=== PATIENT | male | born 1960 | race Caucasian/White ===

== ENCOUNTER 2017-04-05 22:50 | Emergency (ER) | payer MEDICAID ==
[~2017-04-05] VITALS: Ht 162.6 cm; Wt 74.8 kg
--- NOTE | 2017-04-06 00:31 | NUR ---
Patient is resting comfortably in bed with eyes closed
--- NOTE | 2017-04-06 01:45 | NUR ---
Patient provided copy of [facility] and police report left by [employer].
--- NOTE | 2017-04-06 01:46 | NUR ---
Patient discharged to home in stable conditon. Written and verbal after care instructions given. Patient verbalizes understanding of instructions.
== END 2017-04-06 01:48 | disposition home or self-care (01) ==
LOC: ER 22:51
DX: S61.411A Laceration without foreign body of right hand, initial encounter (principal); S61.211A Laceration without foreign body of left index finger without damage to nail, initial encounter; S51.812A Laceration without foreign body of left forearm, initial encounter; W26.0XXA Contact with knife, initial encounter; Y93.89 Activity, other specified; Y92.9 Unspecified place or not applicable; Y99.9 Unspecified external cause status
CPT/HCPCS: 12002; 73090; 73130 ×2; 90471; 90715; 96372; 99284; A4217 ×3; A4663; J0690

== ENCOUNTER 2021-03-08 20:32 | Inpatient (IN) | payer MEDICAID ==
[~2021-03-08] VITALS: Ht 165.1 cm; Wt 56.7 kg
--- NOTE | 2021-03-08 20:50 | NUR ---
Patient bib ra 83 from [address] station for weakness. Pt. was sitting on planter unable to ambulate. BGC taken by ems was 134. Pt. emirati speaking only, but understands some gambian.
[2021-03-08] MEDS ORDERED: IV NORMAL SALINE 250 ML BAG IV ONE (21:15)
[2021-03-08 21:26] LABS: HEMATOCRIT 24.8 % (36.7-47.1); MEAN CORPUSCULAR HEMOGLOBIN 28.5 uug (23.8-33.4); MEAN CORPUSCULAR VOLUME 89.1 fL (73.0-96.2); PLATELET COUNT (AUTO) 262 K/uL (152-348)
--- NOTE | 2021-03-08 21:30 | NUR ---
Dr Lou at bedside for mse.
[2021-03-08 21:32] LABS: CREATININE 2.8 mg/dL (0.6-1.3); POTASSIUM 4.7 mmol/L (3.5-5.1)
--- NOTE | 2021-03-08 21:40 | NUR ---
Pt taken to ct
[2021-03-08 21:48] LABS: BILIRUBIN,TOTAL 21.6 mg/dL (0.2-1.0); TOTAL PROTEIN, SERUM 6.8 g/dL (6.4-8.2)
[2021-03-08 21:49] LABS: BILIRUBIN,DIRECT 17.5 mg/dL (0.0-0.2)
--- NOTE | 2021-03-08 21:52 | NUR ---
Pt returned from CT
[2021-03-08] MEDS ORDERED: PIPERACILLIN/TAZO 2.25 G in IV DEXTROSE 5% 50 ML IV STA (22:14)
[2021-03-08] MEDS ORDERED: PIPERACILLIN/TAZOBACTAM/D5W 50 ML ONE (22:29)
[2021-03-08] MEDS ORDERED: IV NORMAL SALINE 500 ML BAG IV ONE (22:30)
[2021-03-08] MEDS ORDERED: LACTULOSE 20 G/30 ML LIQUID UDC PO ONE (22:45)
[2021-03-08] MEDS ORDERED: LACTULOSE 20 G/30 ML LIQUID UDC ONE (23:01)
--- NOTE | 2021-03-08 23:20 | NUR ---
Pt. verified verbally to myself that he had no drug allergies. Gave Zosyn at [phone]. Recieved fax from [facility] at [phone] of pts prior medical hx which shows Penicillin allergy. Pt. immediately reassessed. Denies any symptoms. No signs of distress. No SOB, no chest pain, no itching, no dyspnea. Pt vs currently 121/74, pulse 112, sp02 100% RA. Will continue to monitor pt. Chart updated to reflect allergy.
[2021-03-08 23:32] LABS: ETHANOL < 3 MG/DL (0-0)
--- NOTE | 2021-03-09 00:24 | NUR ---
Called [facility] for panel call. Dr. Coronel will call back.
--- NOTE | 2021-03-09 00:38 | NUR ---
Dr. Lou spoke w/ Dr. Coronel. Pt. to be admitted to [facility] for ams.
--- NOTE | 2021-03-09 01:40 | NUR ---
Gave report to CHRISTIE Hurt.
--- NOTE | 2021-03-09 02:00 | NUR ---
ADMITTED IN TELE FLOOR UNDER THE CARE OF DR. MEJIA. PATIENT ALERT X2/3 SPEAK WOLOF BUT UNDERSTAND MOHAWK. PATIENT HAS YELLOW SKIN, JAUNDACE, EYES SCLERA YELLOW COLOR, PATIENT HAS ASCITES, HAD ABDOMEN SCAR FROM HERNIA SURGERY. PATIENT CONTINENT USES URINAL FOR BLADDER ELIMINATION. CONT TO MONITOR.
[2021-03-09 02:20] VITALS: BP 99/64
[2021-03-09 04:15] VITALS: BP 95/60
[2021-03-09] MEDS ORDERED: ONDANSETRON 4 MG/2 ML VIAL IV PRN (06:30)
[2021-03-09] MEDS ORDERED: IV D5/ 0.9% NACL 1,000 ML IV PRN (06:30)
[2021-03-09 06:58] LABS: HEMATOCRIT 23.7 % (36.7-47.1); MEAN CORPUSCULAR HEMOGLOBIN 28.6 uug (23.8-33.4); MEAN CORPUSCULAR VOLUME 86.7 fL (73.0-96.2); PLATELET COUNT (AUTO) 211 K/uL (152-348)
[2021-03-09 07:00] LABS: CARBON DIOXIDE 16 mmol/L (21-32); CHLORIDE 100 mmol/L (98-107); CREATININE 2.4 mg/dL (0.6-1.3); GLUCOSE 125 mg/dL (74-106); POTASSIUM 4.3 mmol/L (3.5-5.1); UREA NITROGEN, BLOOD 70 mg/dL (7-18)
[2021-03-09 07:03] LABS: IRON, SERUM 17 ug/dL (50-175)
[2021-03-09 07:06] LABS: ALANINE AMINOTRANSFERASE 31 U/L (16-63); ALKALINE PHOSPHATASE 936 U/L (50-136); ASPARTATE AMINOTRANSFERASE 160 U/L (15-37); BILIRUBIN,TOTAL 20.5 mg/dL (0.2-1.0); CHOLESTEROL < 50 mg/dL (<200); MAGNESIUM 2.3 mg/dL (1.8-2.4); PHOSPHOROUS 4.5 mg/dL (2.5-4.9); TOTAL PROTEIN, SERUM 6.3 g/dL (6.4-8.2); TRIGLYCERIDES 89 MG/DL (30-150)
[2021-03-09 07:17] LABS: HDL CHOLESTEROL < 10 mg/dL (40-60)
[2021-03-09 07:22] LABS: *BILIRUBIN,URIN 3+ (NEGATIVE); *BLOOD, URINE NEGATIVE (NEGATIVE); *CLARITY,URINE CLEAR (CLEAR); *COLOR,URINE YELLOW (YELLOW); *KETONES,URINE NEGATIVE (NEGATIVE); LEUKOCYTE ESTERASE ,URINE NEGATIVE (NEGATIVE); NITRITE, URINE NEGATIVE (NEGATIVE); PH,URINE 5.5 (5.0-8.0); UGLUCOSE NEGATIVE (NEGATIVE)
--- NOTE | 2021-03-09 08:00 | NUR ---
AWAKE ALERT AND VERBALLY RESPONSIVE NO SS OF PAIN OR DISTRESS. NPO FOR NOW TILL FURTHER ORDERS. SR ON MONITOR
[2021-03-09] MEDS: PANTOPRAZOLE SODIUM 40 MG VIAL IV SCH (08:13)
[2021-03-09 09:06] LABS: BACTERIA,URINE NONE SEEN /HPF (NONE SEEN); RBC,URINE NONE SEEN /HPF (0-3); SQUAMOUS EPITHELIAL CELL,UR FEW /HPF (NONE SEEN); WBC,URINE 0-3 /HPF (0-3)
[2021-03-09 10:57] VITALS: BP 91/65
[2021-03-09] MEDS: LACTULOSE 20 G/30 ML LIQUID UDC PO SCH ×2 (11:08→16:26)
[2021-03-09] MEDS: MORPHINE SULFATE 2 MG/1 ML DISP.SYRIN IV PRN (11:09)
[2021-03-09] MEDS: RIFAXIMIN 550 MG TABLET PO SCH ×2 (11:17→20:39)
--- NOTE | 2021-03-09 11:22 | NUR ---
seen by speech therapy for swallow eval patient showed no ss of aspiration/coughing. per ST PATIENT WILL TOLERATE SOFT DIET
[2021-03-09] MEDS: METRONIDAZOLE 500 MG/NS 100ML 500 MG in PREMIXED 1 EACH IV SCH ×2 (13:19→21:21)
[2021-03-09] MEDS ORDERED: ALBUMIN HUMAN 25% 50 ML IV ONE (14:45)
[2021-03-09 15:34] VITALS: BP 109/68
[2021-03-09] MEDS: FUROSEMIDE 20 MG TABLET PO SCH (16:26)
[2021-03-09] MEDS: MIDODRINE HCL 5 MG TABLET PO SCH ×2 (16:27→21:22)
[2021-03-09] MEDS: SPIRONOLACTONE 50 MG TABLET PO SCH (16:27)
--- NOTE | 2021-03-09 17:54 | NUR ---
CONSENT FOR ABDOMINAL PARACENTESIS DONE. PATIENT TO RECEIVE ALBUMIN 30 MINS POST PARACENTESIS
--- NOTE | 2021-03-09 19:45 | NUR ---
PATIENT AWAKE BUT FORGETFUL, NO SOB NO CHEST PAIN, PATIENT ON TELE MONITOR SINUS RYTHM AT THIS TIME, PATIENT HAS NO COMPLAIN OF PAIN, NO S/S OF DISCOMFORT. CONT TO MONITOR.
[2021-03-09 20:00] VITALS: BP 102/68
[2021-03-10] VITALS (9 sets, daily range): BP systolic 64–108; BP diastolic 53–64
[2021-03-10] MEDS: METRONIDAZOLE 500 MG/NS 100ML 500 MG in PREMIXED 1 EACH IV SCH ×3 (05:06→21:08)
[2021-03-10] MEDS: MIDODRINE HCL 5 MG TABLET PO SCH ×3 (05:15→21:05)
[2021-03-10 06:21] LABS: HEMATOCRIT 24.1 % (36.7-47.1); MEAN CORPUSCULAR HEMOGLOBIN 28.6 uug (23.8-33.4); MEAN CORPUSCULAR VOLUME 88.5 fL (73.0-96.2); PLATELET COUNT (AUTO) 51 K/uL (152-348)
--- NOTE | 2021-03-10 06:23 | NUR ---
PATIENT AWAKE BUT FORGETFUL NO SOB NO CHEST PAIN, NO COMPLAIN OF PAIN AT THIS TIME. PATIENT STILL HAS ABDOMINAL ASCITES, WITH YELLOW COLOR SKIN AND SCLERA. PATIENT ON ABX FOR ELEVATED WBC WITH NO ADVERSE REACTION NOTED, PATIENT WAS KEPT CLEAN AND DRY, CALL LIGHT WITHIN REACH.
[2021-03-10 06:53] LABS: CREATININE 2.2 mg/dL (0.6-1.3); MAGNESIUM 2.1 mg/dL (1.8-2.4); POTASSIUM 4.3 mmol/L (3.5-5.1)
--- NOTE | 2021-03-10 08:00 | NUR ---
RESTING COMFORTABLY DENIES PAIN OR SOB, NO NAUSEA AND VOMITING, TOLERATING FOOD FAIRLY BUT POOR APPETITE. SR ON MONITOR
[2021-03-10] MEDS: RIFAXIMIN 550 MG TABLET PO SCH ×2 (08:51→21:05)
[2021-03-10] MEDS: PANTOPRAZOLE SODIUM 40 MG VIAL IV SCH (08:51)
[2021-03-10] MEDS: LACTULOSE 20 G/30 ML LIQUID UDC PO SCH ×2 (08:51→17:00)
[2021-03-10] MEDS: FUROSEMIDE 20 MG TABLET PO SCH (08:52)
[2021-03-10] MEDS: SPIRONOLACTONE 50 MG TABLET PO SCH (08:52)
[2021-03-10] MEDS: ACETAMINOPHEN 650 MG SUPP.RECT RC PRN (08:52)
[2021-03-10] MEDS ORDERED: CEFTRIAXONE 1 G in IV DEXTROSE 5% 50 ML IV SCH (09:15)
--- NOTE | 2021-03-10 09:42 | NUR ---
US DEPT NOTIFIED OF PARACENTESIS SCHEDULE, PER LANI PATIENT IS TENTATIVELY SCHEDULED THIS PM
--- NOTE | 2021-03-10 15:10 | NUR ---
US GUIDED PARACENTESIS START AT BEDSIDE BY DR MONTOYA AT BEDSIDE UNDER LOCAL ANESTHESIA
--- NOTE | 2021-03-10 15:27 | NUR ---
PATIENT TOLERATING FAIRLY WELL. SR ON MONITOR
--- NOTE | 2021-03-10 15:40 | NUR ---
PATIENT BLOOD PRESSURE 88/58, HR 99 WARM AND DRY SKIN, PARACENTESIS STOPPED AND OBSERVED
--- NOTE | 2021-03-10 15:58 | NUR ---
BLOOD PRESSURE RECHECKED 94/59, HR 95 [id number] AWAKE ALERT AND ORIENTED X3, SKIN REMAINS WARM AND DRY MD NOTIFIED. SPECIMEN SENT TO LAB FOR ANALYSIS
[2021-03-10] MEDS: ALBUMIN HUMAN 25% 100 ML IV SCH ×2 (16:02→17:58)
--- NOTE | 2021-03-10 16:23 | NUR ---
BLOOD PRESSURE 90/57, HR 95, NO ACUTE CHANGE REMAINS AWAKE ALERT AND ORIENTED X3, WARM AND DRY SKIN. NO SS OF DISTRESS OBSERVED
--- NOTE | 2021-03-10 17:00 | NUR ---
LATEST BP 97/53, NO SS OF PAIN OR DISTRESS SR ON MONITOR
[2021-03-11] VITALS: BP 100/51
[2021-03-11 04:00] VITALS: BP 82/46
[2021-03-11] MEDS: METRONIDAZOLE 500 MG/NS 100ML 500 MG in PREMIXED 1 EACH IV SCH (05:44)
[2021-03-11] MEDS: PANTOPRAZOLE SODIUM 40 MG TABLET.DR PO SCH (05:45)
[2021-03-11] MEDS: MIDODRINE HCL 5 MG TABLET PO SCH ×3 (05:45→21:31)
--- NOTE | 2021-03-11 06:30 | NUR ---
Patient rested well in between care; no acute distress; incontinence care done; icteric eyes and jaundiced skin noted; bp remains on the low side but given with midodrine as ordered. continue to monitor.
[2021-03-11 07:18] LABS: MAGNESIUM 2.1 mg/dL (1.8-2.4); PHOSPHOROUS 4.3 mg/dL (2.5-4.9)
--- NOTE | 2021-03-11 08:00 | NUR ---
PT IN BED RESTING, CHADIAN SPEAKING, C/O AMS, PT JAUNDICED SKIN AND SCLERA, PT ON TELE MONITOR NSR. PT ON ROOM AIR, NO SIGNS OF DISTRESS, NO REPORTS OF PAIN. PT INCONTINENT, RIGHT FA 20G SALINE LOCK. PT ON ABX, BED LOW AND LOCKED, CALL LIGHT WITHIN REACH, WILL CONTINUE TO MONITOR.
[2021-03-11 08:13] LABS: HEMATOCRIT 24.5 % (36.7-47.1); MEAN CORPUSCULAR HEMOGLOBIN 28.7 uug (23.8-33.4); MEAN CORPUSCULAR VOLUME 87.5 fL (73.0-96.2)
[2021-03-11 08:39] LABS: PLATELET COUNT (AUTO) 37 K/uL (152-348)
--- NOTE | 2021-03-11 08:39 | NUR ---
CRITICAL LAB VALUE BEING REPORTED BY DIONY ROSARIO. PLATELET COUNT IS 37, MADE AWARE. WILL CONTINUE TO MONITOR
[2021-03-11 09:49] LABS: POTASSIUM 4.4 mmol/L (3.5-5.1)
[2021-03-11 09:50] LABS: CREATININE 2.7 mg/dL (0.6-1.3)
[2021-03-11 10:13] LABS: BILIRUBIN,DIRECT 18.1 mg/dL (0.0-0.2); BILIRUBIN,TOTAL 23.2 mg/dL (0.2-1.0)
[2021-03-11] MEDS: MORPHINE SULFATE 2 MG/1 ML DISP.SYRIN IV PRN (10:23)
[2021-03-11] MEDS: RIFAXIMIN 550 MG TABLET PO SCH ×2 (10:23→21:00)
[2021-03-11] MEDS: SPIRONOLACTONE 50 MG TABLET PO SCH (10:24)
[2021-03-11] MEDS: FUROSEMIDE 20 MG TABLET PO SCH (10:24)
[2021-03-11] MEDS: LACTULOSE 20 G/30 ML LIQUID UDC PO SCH ×2 (10:24→17:42)
[2021-03-11] MEDS: CEFTRIAXONE 1 G in IV DEXTROSE 5% 50 ML IV SCH (11:03)
[2021-03-11 11:22] VITALS: BP 94/64
[2021-03-11 14:21] LABS: EOSINOPHILS % (MANUAL) 1 % (0-8); LYMPHOCYTES % (MANUAL) 6 % (20-40); MONOCYTES % (MANUAL) 13 % (2-10); NEUTROPHILS % (MANUAL) 80 % (42-75)
[2021-03-11 15:29] VITALS: BP 95/59
--- NOTE | 2021-03-11 15:30 | NUR ---
PT DOES NOT KNOW WHICH MEDICATION HE TAKES AT HOME, FAMILY MEMBER PHONE NUMBER IS DISCONNECTED. PT LEFT FOR MRCP, CHECKLIST COMPLETED.
--- NOTE | 2021-03-11 16:14 | NUR ---
NITISH CALLED AND STATED THAT PT WAS REFUSING MRCP, PT IS ON HIS WAY BACK AND WILL TRY AGAIN TOMORROW.
--- NOTE | 2021-03-11 16:45 | NUR ---
PT BACK AT [facility] ON THE FLOOR. WILL CONTINUE TO MONITOR.
[2021-03-11] MEDS: ENSURE ENLIVE (VAN) 240 ML LIQUID PO SCH (17:42)
--- NOTE | 2021-03-11 19:00 | NUR ---
Patient report received. Patient seen in bed resting. Awake, alert and oriented x 1-2. Confused and disoriented. Patient skin is jaundiced. Sinus rhythm. Patient is comfortable on room air. Patient is on bed rest. Incontinent bowel and urine. Patient has a RFA 20g, patent. No signs of distress at this time. Bed in low and locked position. Call light within reach.
[2021-03-11] MEDS ORDERED: ALBUMIN HUMAN 25% 100 ML IV ONE (20:00)
--- NOTE | 2021-03-11 20:30 | NUR ---
Patient is refusing vitals and blood pressure. Addendum: 03/11/21 at 2108 by MILTON RANGEL RN blood draw
[2021-03-11] MEDS: ALBUMIN HUMAN 25% 100 ML IV SCH ×2 (21:00→23:00)
[2021-03-11] MEDS ORDERED: ALBUMIN HUMAN 25% 100 ML IV SCH (21:00)
[2021-03-12] VITALS (34 sets, daily range): BP systolic 50–130; BP diastolic 12–80
[2021-03-12] MEDS: ALBUMIN HUMAN 25% 100 ML IV SCH ×2 (01:00→03:00)
--- NOTE | 2021-03-12 04:30 | NUR ---
Patient had a seizure, observed for 2 minutes. Post vital signs are 1o4/65 HR:120 O2: 99 on room air. Padding applied. Patient on 2L. Labored breathing noted. Dr. Ceballos notified.
[2021-03-12 04:50] LABS: HEMATOCRIT 27.9 % (36.7-47.1); MEAN CORPUSCULAR HEMOGLOBIN 28.4 uug (23.8-33.4); MEAN CORPUSCULAR VOLUME 91.9 fL (73.0-96.2); PLATELET COUNT (AUTO) 54 K/uL (152-348)
[2021-03-12 04:53] LABS: BILIRUBIN,TOTAL 28.3 mg/dL (0.2-1.0); CREATININE 3.8 mg/dL (0.6-1.3); TOTAL PROTEIN, SERUM 6.5 g/dL (6.4-8.2)
[2021-03-12 05:07] LABS: MAGNESIUM 2.3 mg/dL (1.8-2.4); PHOSPHOROUS 6.9 mg/dL (2.5-4.9)
[2021-03-12 05:27] LABS: BAND % (MANUAL) 4 % (0-10); LYMPHOCYTES % (MANUAL) 10 % (20-40); METAMYELOCYTES % 2 % (0-1); MONOCYTES % (MANUAL) 9 % (2-10); NEUTROPHILS % (MANUAL) 75 % (42-75)
[2021-03-12] MEDS: MIDODRINE HCL 5 MG TABLET PO SCH ×3 (06:00→22:00)
[2021-03-12] MEDS ORDERED: LORAZEPAM 2 MG/1 ML VIAL IV STA (06:16)
--- NOTE | 2021-03-12 06:45 | NUR ---
Pt appears to be having more tremors; referred to DR Vang; order for ativan 1mg IVP x1 given; also referred K @ 5 and CO2 at 10; new orders made.
[2021-03-12] MEDS: PANTOPRAZOLE SODIUM 40 MG TABLET.DR PO SCH (07:00)
--- NOTE | 2021-03-12 08:00 | NUR ---
Received bedside report. Observed patient appearance, patient is jaundiced eyes and skin is yellow. Patient is now aphasic but was verbal prior to seizure activity that occurred at 0400 per night nurse. I made Dr Riggins aware and an order for ABGs and head CT without contrast was given. The patient was taken down for CT and vincenzo cardiac activity was noted on the personnel monitor. A code blue was called from 3rd floor. After code was cleared, pt is transferred to CCU. Will endorse to CCU nurse
[2021-03-12] MEDS ORDERED: SODIUM POLYSTYRENE SULFONATE ENEMA 30 G/120 ML BOTTLE RC ONE (08:15)
[2021-03-12 08:28] LABS: ABG BASE EXCESS -26.3 mmol/L; ABG HCO3 4.5 mmol/L; ABG PCO2 22.7 mmHg (35.0-45.0); ABG PH 6.919 (7.350-7.450); ABG SITE LEFT RADIAL; ABG TOTAL HEMOGLOBIN 8.8 G/dL (13.5-18.0); COHb 2.1 % (0.5-1.5); MetHb 0.3 % (0.0-1.5); O2Hb 92.3 % (94.0-97.0); VENT MODE Nasal Cannula
[2021-03-12] MEDS ORDERED: FOLIC ACID 1 MG TABLET PO SCH (09:00)
[2021-03-12] MEDS: RIFAXIMIN 550 MG TABLET PO SCH ×2 (09:00→21:00)
[2021-03-12] MEDS ORDERED: SODIUM POLYSTYRENE SULFONATE 15 G/60 ML LIQUID UDC PO ONE (09:00)
[2021-03-12] MEDS: ENSURE ENLIVE (VAN) 240 ML LIQUID PO SCH ×2 (09:00→17:00)
[2021-03-12] MEDS: LACTULOSE 20 G/30 ML LIQUID UDC PO SCH ×2 (09:00→17:00)
[2021-03-12] MEDS ORDERED: NOREPINEPHRINE BITARTRATE 32 MG in IV NORMAL SALINE 218 ML IV PRN ×2 (09:30→11:30)
[2021-03-12] MEDS ORDERED: SODIUM BICARBONATE 8.4% 50 MEQ/50 ML DISP.SYRIN IV ONE ×2 (09:45→12:15)
[2021-03-12] MEDS ORDERED: ALBUMIN HUMAN 25% 50 ML IV ONE (09:45)
[2021-03-12 09:54] LABS: ABG BASE EXCESS -28.2 mmol/L; ABG PCO2 24.7 mmHg (35.0-45.0); ABG PH 6.823 (7.350-7.450); ABG SITE LEFT RADIAL; ABG TOTAL HEMOGLOBIN 7.5 G/dL (13.5-18.0); COHb 2.3 % (0.5-1.5); MetHb 0.7 % (0.0-1.5); O2Hb 96.5 % (94.0-97.0)
[2021-03-12] MEDS ORDERED: VASOPRESSIN 40 UNIT in IV NORMAL SALINE 40 ML IV PRN (10:15)
[2021-03-12] MEDS ORDERED: PHENYLEPHRINE IV 100 MG in IV NORMAL SALINE 240 ML IV PRN ×2 (10:15→11:30)
[2021-03-12] MEDS: CEFTRIAXONE 1 G in IV DEXTROSE 5% 50 ML IV SCH (11:00)
--- NOTE | 2021-03-12 11:00 | NUR ---
patient too unstable to turn. maxed out on 2 pressors and adding vasopressor.
[2021-03-12 11:01] LABS: HEMATOCRIT 21.1 % (36.7-47.1); MEAN CORPUSCULAR HEMOGLOBIN 28.4 uug (23.8-33.4); MEAN CORPUSCULAR VOLUME 93.8 fL (73.0-96.2); PLATELET COUNT (AUTO) 58 K/uL (152-348)
[2021-03-12 11:06] LABS: ABG HCO3 8.7 mmol/L; ABG PCO2 48.6 mmHg (35.0-45.0); ABG PO2 57.9 mmHg (75.0-100.0); ABG SITE A-Line; ABG TOTAL HEMOGLOBIN 6.9 G/dL (13.5-18.0); COHb 2.9 % (0.5-1.5); O2Hb 65.5 % (94.0-97.0); VENT MODE VENT - A/C; VT, ABG 400 mL
[2021-03-12 11:15] LABS: BILIRUBIN,TOTAL 19.4 mg/dL (0.2-1.0); CREATININE 4.2 mg/dL (0.6-1.3); POTASSIUM 5.6 mmol/L (3.5-5.1); TOTAL PROTEIN, SERUM 5.2 g/dL (6.4-8.2)
[2021-03-12] MEDS ORDERED: SODIUM BICARBONATE IV PRN (12:30)
[2021-03-12] MEDS ORDERED: NS IV PRN (12:30)
--- NOTE | 2021-03-12 14:00 | NUR ---
patient already maxed on levophed, neosynephrine and vasopressin informed dr. luna if wants to add another pressor. patient bp remains in the 60's and sometimes unable to read. no new orders for additional pressors at this time.
[2021-03-12 14:36] LABS: BAND % (MANUAL) 4 % (0-10); NEUTROPHILS % (MANUAL) 87 % (42-75)
[2021-03-12 14:37] LABS: LYMPHOCYTES % (MANUAL) 2 % (20-40); METAMYELOCYTES % 2 % (0-1); MONOCYTES % (MANUAL) 5 % (2-10)
[2021-03-12] MEDS: MIDAZOLAM HCL 50 MG in IV NORMAL SALINE 40 ML IV PRN (17:30)
--- NOTE | 2021-03-12 17:30 | NUR ---
ativan given. patient having siezures informed dr. luna. patient started on versed dryaritza.
[2021-03-12] MEDS ORDERED: LORAZEPAM 2 MG/1 ML VIAL ONE (17:31)
[2021-03-12] MEDS: ACETAMINOPHEN 650 MG SUPP.RECT RC PRN (17:40)
[2021-03-12] MEDS ORDERED: PHYTONADIONE 10 MG/1 ML AMPUL SQ ONE (17:45)
[2021-03-12] MEDS ORDERED: ACETAMINOPHEN 325 MG TABLET PO ONE (18:00)
[2021-03-12] MEDS ORDERED: diphenhydrAMINE 50 MG/1 ML VIAL IV ONE (18:00)
--- NOTE | 2021-03-12 19:30 | NUR ---
INSERTED F/C AND DONE ASEPTICALLY .F/C NO .16, URINE ONLY 20 ML /HR DARK -TEA YELLOWISH IN COLOR
--- NOTE | 2021-03-12 19:30 | NUR ---
PATIENT TOLERATING VENT SETTING 100% RR 20. ON MULTIPLE PRESSORS . LEVOPHED DRIP AT 1MCG/KG/MIN ,NEOSYNEPHRINE DRIP AT 3 MCG/KG/MIN , VASOPRESSIN DRIP 0.04 UNITS/MIN ,VERSED DRIP AT 5MG/HR , N/S WITH SODIUM BICARBONATE DRIP AT 50 ML/HR INFUSING VIA THE LEFT FEMORAL 3 LUMEN CENTRAL LINE . CONTINUE TO MONITOR V/S AND MONITOR V/S Q15 MINUTES ,
--- NOTE | 2021-03-12 19:50 | NUR ---
TEMPERATURE VIA RECTAL 92.8 TO 92.7 , PLACED PATIENT ON LANA HUGGER .
--- NOTE | 2021-03-12 20:31 | NUR ---
1 UNIT OF FROZEN PLASMA STARTED ,VERIFIED BLOOD WITH 2 RN .
--- NOTE | 2021-03-12 21:10 | NUR ---
INSERTED NGT TO THE RIGHT NARE ,GOOD PLACEMENT AUSCULTATED STOMACH ,ROUND AND DISTENDED ABDOMEN .NGT CLAMP .WILL VERIFY BY CHEST XRAY .
--- NOTE | 2021-03-12 22:32 | NUR ---
Patient endorsed on PB-840 ventilator with ordered settings of AC VC 20, 500, +5, 40% FiO2 via 7.0 EtTube; 23cm lipline/22cm teeth. Location changed throughout shift to ensure skin integrity. Adequate ventilation on vent, no respiratory distress noted at this time. Suctioned scant amounts of thin pale white secretions.Oral care rendered. [place] at bedside. Alarms are on/audible; Vent plugged in to red outlet. Will continue to monitor throughout shift. Addendum: 03/13/21 at 0437 by SEFERINO NEWELL RT Sage escobar called for this patient at 0245. ACLS initiated with 100% FiO2 manual resuscitation. Second code initiated at 0300. pronounced the patient at 0310.
[2021-03-13] VITALS (10 sets, daily range): BP systolic 53–64; BP diastolic 32–45
[2021-03-13] MEDS: MIDAZOLAM HCL 50 MG in IV NORMAL SALINE 40 ML IV PRN (02:03)
--- NOTE | 2021-03-13 02:42 | NUR ---
CALL CODE BLUE PATIENT ASYSTOLE, CPR DONE REFER TO CODE BLUE SHEET FOR ACLS . DR: MICHELLE LEPE RESPONDED FOR CODE CHRISTOFER .
--- NOTE | 2021-03-13 03:00 | NUR ---
CALL ANOTHER CODE BLUE AT THIS TIME PATIENT WENT TO ASYSTOLE ON THE HEART MONITOR .
[2021-03-13] MEDS ORDERED: SODIUM BICARBONATE 8.4% 50 MEQ/50 ML DISP.SYRIN IV ONE ×2 (03:09)
[2021-03-13] MEDS ORDERED: AMIODARONE HCL 150 MG/3 ML VIAL IV ONE (03:09)
[2021-03-13] MEDS ORDERED: CALCIUM CHLORIDE 1 GM/10 ML DISP.SYRIN IV ONE ×2 (03:09)
[2021-03-13] MEDS ORDERED: DEXTROSE 50% 50 ML DISP.SYRIN IV ONE (03:09)
[2021-03-13] MEDS ORDERED: EPINEPHRINE 1:10,000 1 MG/10 ML DISP.SYRIN IV ONE ×2 (03:09)
--- NOTE | 2021-03-13 03:10 | NUR ---
PATIENT AT [address]: MICHELLE LEPE .
[2021-03-13] MEDS ORDERED: CALCIUM CHLORIDE 1 GM/10 ML DISP.SYRIN IVP ONE (03:11)
--- NOTE | 2021-03-13 03:45 | NUR ---
POST MORTEM CARE DONE . CALLED [facility] TO NOTIFY SPOKED WITH SERVICE DARRIUS LÓPEZ TETRYL SCREEN OPERATOR . AWAITING FOR CALL BACK .
--- NOTE | 2021-03-13 03:45 | NUR ---
CALLED [facility] , SPOKED WITH BETTYE PATIENT NOT A CANDIDATE FOR [employer]GAN DONOR .CASE NO .[id number] .
--- NOTE | 2021-03-13 04:15 | NUR ---
NO BELONGINGS FOUND /NOTED .
--- NOTE | 2021-03-13 04:20 | NUR ---
ENDORSED NO FAMILY AND PULL SOCKET ASSEMBLER TO LOCATE FAMILY .
--- NOTE | 2021-03-13 05:30 | NUR ---
LUZ ELENA LÓPEZ CALLED BACK AND INFORMED PATIETN .
== END 2021-03-13 03:10 | DRG 280 ==
LOC: ER 20:34 → TELE3 23:55 → MEDSURG3 03-11 19:54 → TELE3 03-12 02:00 → CCU 03-12 09:42
PROVIDERS: ADMIT Internal Medicine; ATTEND Internal Medicine
PROC: 30233N1 Transfusion of Nonautologous Red Blood Cells into Peripheral Vein, Percutaneous Approach (ICD-10-PCS; principal; 2021-03-10)
PROC: 0W9G3ZZ Drainage of Peritoneal Cavity, Percutaneous Approach (ICD-10-PCS; principal; 2021-03-10)
PROC: 5A12012 Performance of Cardiac Output, Single, Manual (ICD-10-PCS; 2021-03-12)
PROC: 30233K1 Transfusion of Nonautologous Frozen Plasma into Peripheral Vein, Percutaneous Approach (ICD-10-PCS; 2021-03-12)
PROC: 5A1935Z Respiratory Ventilation, Less than 24 Consecutive Hours (ICD-10-PCS; 2021-03-12)
PROC: 06HY33Z Insertion of Infusion Device into Lower Vein, Percutaneous Approach (ICD-10-PCS; 2021-03-12)
PROC: 0BH18EZ Insertion of Endotracheal Airway into Trachea, Via Natural or Artificial Opening Endoscopic (ICD-10-PCS; 2021-03-12)
PROC: B54CZZA Ultrasonography of Left Lower Extremity Veins, Guidance (ICD-10-PCS; 2021-03-12)
DX: K70.40 Alcoholic hepatic failure without coma (principal); K70.31 Alcoholic cirrhosis of liver with ascites; N17.0 Acute kidney failure with tubular necrosis; K76.7 Hepatorenal syndrome; R57.9 Shock, unspecified; J96.01 Acute respiratory failure with hypoxia; J96.02 Acute respiratory failure with hypercapnia; C22.0 Liver cell carcinoma; E43 Unspecified severe protein-calorie malnutrition; D68.9 Coagulation defect, unspecified; E87.1 Hypo-osmolality and hyponatremia; K65.2 Spontaneous bacterial peritonitis; D69.6 Thrombocytopenia, unspecified; E87.2 Acidosis; C78.6 Secondary malignant neoplasm of retroperitoneum and peritoneum; F10.10 Alcohol abuse, uncomplicated; N18.9 Chronic kidney disease, unspecified; I50.9 Heart failure, unspecified; R56.9 Unspecified convulsions; D64.9 Anemia, unspecified; E86.0 Dehydration; K21.9 Gastro-esophageal reflux disease without esophagitis; Z20.822 Contact with and (suspected) exposure to COVID-19; Z85.05 Personal history of malignant neoplasm of liver; E88.09 Other disorders of plasma-protein metabolism, not elsewhere classified; R07.9 Chest pain, unspecified; Z88.0 Allergy status to penicillin; Z91.19 Patient's noncompliance with other medical treatment and regimen; D72.829 Elevated white blood cell count, unspecified; C22.1 Intrahepatic bile duct carcinoma
CPT/HCPCS: 36415; 36600; 70030-TC; 70450; 71045; 76705; 82105; 82378; 83550; 83605; 83615; 83735; 83986; 84100; 84155; 84443; 85025; 85610; 85730; 86301; 86850; 86900; 86901; 86920; 87040; 87070; 87086; 87205; 92950; 93005; 93307; 94002; A4663; C9113; G0378; G0480; J0171; J0282; J0696; J1200; J1956; J2060; J2250; J2270; J2370; J2543; J3430; J3490; J7030; J7040; J7042; J7050; J7060; P9016; P9017; P9021; P9047